=== PATIENT | female | born 1990 | race Hispanic/Latino ===

== ENCOUNTER 2018-01-27 08:08 | Emergency (ER) | payer OTHER ==
[2018-01-27 09:22] LABS: BASO % 0.3 % (0.0-1.0); EOS # 0.1 10^3/uL (0.0-0.50); EOS % 1.1 % (0.0-3.0); HEMATOCRIT 40.9 % (36.0-47.0); HEMOGLOBIN 13.6 g/dl (12.0-15.5); IMMATURE GRANULOCYTE % 0.4 % (0-3.0); LYMPH # 2.4 10^3/uL (1.5-6.5); LYMPH % 33.3 % (24.0-44.0); MEAN CORPUSCULAR HEMOGLOBIN 29.5 pg (27.0-33.0); MEAN CORPUSCULAR HGB CONC 33.3 g/dl (32.0-36.5); MEAN CORPUSCULAR VOLUME 88.7 fl (80.0-96.0); MONO # 0.5 10^3/uL (0.0-0.8); MONO % 6.2 % (0.0-5.0); NEUTROPHILS # 4.2 10^3/uL (1.8-7.7); NEUTROPHILS % 58.7 % (36.0-66.0); PLATELET COUNT, AUTOMATED 196 10^3/uL (150-450); RED BLOOD COUNT 4.61 10^6/uL (4.00-5.40); RED CELL DISTRIBUTION WIDTH 11.9 % (11.5-14.5); WHITE BLOOD COUNT 7.2 10^3/uL (4.0-10.0)
[2018-01-27 09:31] LABS: KETONE, URINE AUTO RFX NEGATIVE (NEGATIVE); LEUKOCYTE ESTERASE UR AUTO RFX NEGATIVE (NEGATIVE); MUCUS, URINE RFX SMALL (NEGATIVE); NITRITE, URINE AUTO RFX NEGATIVE (NEGATIVE); RBC, URINE AUTO RFX 9 /HPF (0-3); SPECIFIC GRAVITY UR AUTO RFX 1.027 (1.002-1.035); SQUAM EPITHELIAL CELL UR AURFX 2 /HPF (0-6); WBC, URINE AUTO RFX 1 /HPF (0-3)
[2018-01-27 09:33] LABS: ALBUMIN 4.1 GM/DL (3.2-5.2); ALBUMIN/GLOBULIN RATIO 1.11 (1.00-1.93); ALKALINE PHOSPHATASE 72 U/L (45-117); ALT/SGPT 19 U/L (12-78); ANION GAP 5 MEQ/L (8-16); AST/SGOT 18 U/L (7-37); BILIRUBIN,DIRECT 0.1 MG/DL (0.0-0.2); BILIRUBIN,TOTAL 0.5 MG/DL (0.2-1.0); BLOOD UREA NITROGEN 14 MG/DL (7-18); CALCIUM LEVEL 8.8 MG/DL (8.5-10.1); CARBON DIOXIDE LEVEL 25 MEQ/L (21-32); CHLORIDE LEVEL 110 MEQ/L (98-107); CREATININE FOR GFR 0.72 MG/DL (0.55-1.30); GLOMERULAR FILTRATION RATE > 60.0 (>60); GLUCOSE, FASTING 81 MG/DL (70-100); SODIUM LEVEL 140 MEQ/L (136-145); TOTAL PROTEIN 7.8 GM/DL (6.4-8.2)
[2018-01-27 09:39] LABS: CONTROL LINE UCG INT CTR LINE PRESENT; URINE PREG TEST NEGATIVE (NEGATIVE)
[2018-01-27] MEDS ORDERED: ISOVUE-370 76% 100ML VIAL (Q9967) As Ordered (12:33)
== END 2018-01-27 13:44 | disposition home or self-care (01) ==
LOC: M ED 08:08
DX: R10.31 Right lower quadrant pain (principal)
CPT/HCPCS: Q9967

== ENCOUNTER → 2019-03-14 | Outpatient (REF) | payer OTHER | LOC: M LAB REF 18:13 | PROVIDERS: ATTEND Internal Medicine Endocrinology, Diabetes & Metabolism | DX: E04.1 Nontoxic single thyroid nodule (principal) ==

== ENCOUNTER → 2019-03-18 | Outpatient (CLI) | payer OTHER ==
--- NOTE | 2019-03-18 11:26 | REP ---
MRI LEFT SHOULDER: TECHNIQUE: Axial T2 fat sat, gradient echo, sagittal oblique T2 fat sat, coronal oblique T1, T2 fat sat. There is mild ill-defined high signal in the supraspinatus tendon on T2-weighted images compatible with mild tendinopathy/tendonitis. There is no evidence of a rotator cuff tendon tear. There are mild hypertrophic degenerative changes of the acromioclavicular joint with mild subchondral marrow edema. Acromion is type II. The biceps tendon is within the bicipital groove with no tenosynovitis. There is no Hill-Sachs deformity. No abnormal signal is seen in the deltoid muscle. Biceps labral complex is intact. I do not see evidence of a SLAP tear. There is no other evidence of a labral tear. No other bone marrow signal abnormality is seen. There is no paralabral cyst. There is mild fluid in the subacromial subdeltoid bursae which may indicate bursitis. IMPRESSION: Mild supraspinatus tendinopathy/tendonitis. No evidence of rotator cuff tear or labral tear. Mild hypertrophic degenerative changes of acromioclavicular joint with a type II acromion. Mild fluid in the subacromial subdeltoid bursae may indicate bursitis. Electronically Signed by Art Green MD 03/22/2019 09:44 A
== END ==
LOC: M RAD 07:39
PROVIDERS: ATTEND Family Medicine
DX: M25.512 Pain in left shoulder (principal)

== ENCOUNTER → 2019-09-19 | Outpatient (REF) | payer OTHER ==
[2019-09-19 12:53] LABS: ESTRADIOL 233.2 PG/ML; PROGESTERONE 0.21 NG/ML
== END ==
LOC: M LABDRAW1 11:29
PROVIDERS: ATTEND Obstetrics & Gynecology Reproductive Endocrinology
DX: E28.9 Ovarian dysfunction, unspecified (principal)

== ENCOUNTER → 2019-09-30 | Outpatient (REF) | payer OTHER ==
[2019-09-30 10:48] LABS: THYROID STIMULATING HORMONE 1.6 uIU/ML (0.358-3.740)
[2019-09-30 10:51] LABS: ESTRADIOL 217.2 PG/ML; PROGESTERONE 45.79 NG/ML
== END ==
LOC: M LABDRAW1 08:32
PROVIDERS: ATTEND Obstetrics & Gynecology Reproductive Endocrinology
DX: E28.9 Ovarian dysfunction, unspecified (principal)

== ENCOUNTER → 2019-10-06 | Outpatient (REF) | payer OTHER ==
[2019-10-06 12:07] LABS: PROGESTERONE 40.29 NG/ML
== END ==
LOC: M LABDRAW1 11:10
PROVIDERS: ATTEND Obstetrics & Gynecology Reproductive Endocrinology
DX: E28.9 Ovarian dysfunction, unspecified (principal)

== ENCOUNTER → 2019-10-10 | Outpatient (REF) | payer OTHER ==
[2019-10-10 11:21] LABS: ESTRADIOL 269.6 PG/ML; PROGESTERONE 42.26 NG/ML; THYROID STIMULATING HORMONE 1.3 uIU/ML (0.358-3.740)
== END ==
LOC: M LABDRAW1 09:49
PROVIDERS: ATTEND Obstetrics & Gynecology Reproductive Endocrinology
DX: Z32.01 Encounter for pregnancy test, result positive (principal)

== ENCOUNTER → 2019-12-23 | Outpatient (REF) | payer OTHER ==
[2019-12-23 13:26] LABS: HEMATOCRIT 41.6 % (36.0-47.0); HEMOGLOBIN 13.4 g/dl (12.0-15.5); MEAN CORPUSCULAR HEMOGLOBIN 29.6 pg (27.0-33.0); MEAN CORPUSCULAR HGB CONC 32.2 g/dl (32.0-36.5); MEAN CORPUSCULAR VOLUME 91.8 fl (80.0-96.0); PLATELET COUNT, AUTOMATED 214 10^3/uL (150-450); RED BLOOD COUNT 4.53 10^6/uL (4.00-5.40); WHITE BLOOD COUNT 11.1 10^3/uL (4.0-10.0)
[2019-12-23 14:12] LABS: HEPATITIS B SURFACE ANTIGEN NEGATIVE (NEGATIVE); HEPATITIS C VIRUS ABY INDEX < 0.0 INDEX (<0.8); HIV 1&2 SCREEN CENTAUR NEGATIVE (NEGATIVE); RUBELLA IgG QUALITATIVE IMMUNE (IMMUNE)
[2019-12-23 15:03] LABS: CHLAMYDIA DNA AMPLIFICATION NEGATIVE (NEGATIVE); GC DNA AMPLIFICATION NEGATIVE (NEGATIVE)
== END ==
LOC: M PLALAB 11:02
PROVIDERS: ATTEND Advanced Practice Midwife
DX: O09.812 Supervision of pregnancy resulting from assisted reproductive technology, second trimester (principal); Z3A.00 Weeks of gestation of pregnancy not specified

== ENCOUNTER → 2020-01-16 | Outpatient (CLI) | payer OTHER ==
--- NOTE | 2020-01-16 17:45 | REP ---
OB ULTRASOUND: Real-time sonographic evaluation of the gravid uterus is performed. There is a single living intrauterine gestation, estimated gestational age 19 weeks 1 day based on today's ultrasound, EDC 06/10/2020. BPD 45 mm = 19 weeks 5 days HC 162 mm = 19 weeks 0 days AC 140 mm = 19 weeks 3 days FL 30 mm = 19 weeks 2 days HC/AC 1.16 within normal range of 1.06 to 1.25. Estimated weight 284 grams, 52nd percentile. Cervix is closed and measures 3.6 cm in length. heart rate 149 beats per minute. SEEN/GROSSLY UNREMARKABLE Lateral ventricles yes Posterior fossa yes Upper lip yes Four-chamber heart yes LVOT yes RVOT yes Stomach yes Cord insertion yes Three vessel cord yes Kidneys yes Bladder yes Spine yes position: Breech Placenta: Posterior and grade 1 with no previa or abruption. Amniotic fluid: Within normal limits.
== END ==
LOC: M WHC 12:56
PROVIDERS: ATTEND Advanced Practice Midwife
DX: O09.812 Supervision of pregnancy resulting from assisted reproductive technology, second trimester (principal); O32.1XX0 Maternal care for breech presentation, not applicable or unspecified; Z3A.19 19 weeks gestation of pregnancy

== ENCOUNTER → 2020-01-18 | Outpatient (CLI) | payer OTHER | LOC: M PLALAB 12:27 | PROVIDERS: ATTEND Advanced Practice Midwife | DX: Z34.82 Encounter for supervision of other normal pregnancy, second trimester (principal); Z3A.00 Weeks of gestation of pregnancy not specified ==

== ENCOUNTER → 2020-03-09 | Outpatient (REF) | payer OTHER ==
[2020-03-09 15:28] LABS: HEMATOCRIT 39.7 % (36.0-47.0); HEMOGLOBIN 13.1 g/dl (12.0-15.5); MEAN CORPUSCULAR VOLUME 91.1 fl (80.0-96.0); PLATELET COUNT, AUTOMATED 233 10^3/uL (150-450); RED BLOOD COUNT 4.36 10^6/uL (4.00-5.40); WHITE BLOOD COUNT 11.5 10^3/uL (4.0-10.0)
== END ==
LOC: M PLALAB 12:44
PROVIDERS: ATTEND Advanced Practice Midwife
DX: O09.812 Supervision of pregnancy resulting from assisted reproductive technology, second trimester (principal)

== ENCOUNTER 2020-04-19 10:15 | Outpatient (CLI) | payer OTHER ==
[~2020-04-19] VITALS: Ht 157.5 cm; Wt 80.2 kg
[2020-04-19 10:32] VITALS: BP 120/77
[2020-04-19] MEDS ORDERED: PRENTAB9 PO (10:38)
[2020-04-19 11:08] LABS: HEMOGLOBIN 12.9 g/dl (12.0-15.5); MEAN CORPUSCULAR HGB CONC 33.9 g/dl (32.0-36.5); MEAN CORPUSCULAR VOLUME 88.4 fl (80.0-96.0); PLATELET COUNT, AUTOMATED 218 10^3/uL (150-450); WHITE BLOOD COUNT 11.3 10^3/uL (4.0-10.0)
[2020-04-19 11:15] LABS: APPEARANCE, URINE HAZY (CLEAR); BACTERIA, URINE AUTO 1+ (NEGATIVE); BILIRUBIN, URINE AUTO NEGATIVE (NEGATIVE); BLOOD, URINE BLOOD 1+ (NEGATIVE); COLOR, URINE YELLOW (YELLOW); GLUCOSE, URINE (UA) AUTO NEGATIVE (NEGATIVE); KETONE, URINE AUTO NEGATIVE (NEGATIVE); LEUKOCYTE ESTERASE, URINE AUTO TRACE (NEGATIVE); MUCUS, URINE SMALL (NEGATIVE); NITRITE, URINE AUTO NEGATIVE (NEGATIVE); PROTEIN, URINE AUTO NEGATIVE (NEGATIVE); RBC, URINE AUTO 2 /HPF (0-3); SPECIFIC GRAVITY URINE AUTO 1.012 (1.002-1.035); SQUAMOUS EPITHELIAL CELL UR AU 0 /HPF (0-6); UROBILINOGEN, URINE AUTO 0.2 mg/dL (0.0-2.0); WBC, URINE AUTO 2 /HPF (0-3)
[2020-04-19 11:28] LABS: ALBUMIN 2.9 GM/DL (3.2-5.2); ALT/SGPT 26 U/L (12-78); BILIRUBIN,TOTAL 0.3 MG/DL (0.2-1.0); BLOOD UREA NITROGEN 9 MG/DL (7-18); CALCIUM LEVEL 9.4 MG/DL (8.5-10.1); CARBON DIOXIDE LEVEL 21 MEQ/L (21-32); CHLORIDE LEVEL 109 MEQ/L (98-107); CREATININE FOR GFR 0.54 MG/DL (0.55-1.30); GLOMERULAR FILTRATION RATE > 60.0 (>60); GLUCOSE, FASTING 72 MG/DL (70-100); SODIUM LEVEL 139 MEQ/L (136-145); TOTAL PROTEIN 6.3 GM/DL (6.4-8.2)
[2020-04-19 11:41] VITALS: BP 121/80
[2020-04-19 12:36] VITALS: BP 127/68
--- NOTE | 2020-04-19 14:48 | REP ---
RIGHT UPPER QUADRANT ULTRASOUND: Real-time sonographic evaluation of the right upper quadrant performed. Gallbladder demonstrates no evidence of intraluminal sludge or calculi, wall thickening or pericholecystic fluid. There is no intrahepatic or extrahepatic biliary dilatation, common bile duct measuring 3 mm. The liver demonstrates no gross mass. Pancreas is grossly unremarkable, tail is not well seen due to overlying bowel gas. Right kidney demonstrates mild to moderate hydronephrosis, length is 11.3 cm. Resistive index is 0.59 with duplex Doppler evaluation. Ureteral jets could not be visualized in the urinary bladder, which is suboptimally distended. Live intrauterine demonstrates a heart rate of 171 beats per minute. IMPRESSION: No biliary abnormality is seen. Mild to moderate right hydronephrosis. Electronically Signed by Art Green MD 04/22/2020 10:22 P
--- NOTE | 2020-04-20 07:54 | IPN ---
DATE OF EVALUATION: 04/19/2020 She is a 29-year-old, (G) 1, para (P) 0 female at 32 and 1/7 weeks gestation and expected date of confinement (EDC) of 06/13/2020 who presents with one day of upper abdominal discomfort in the midline which was severe and intermittent. There is no vomiting. There is good movement. OBJECTIVE: Blood pressure 120/77. Pulse 77. Respiratory rate 18. Temperature 97.2. She is in no apparent distress. Head and Neck Exam: Normal. Lungs: Clear. Heart: Regular. Abdomen: Gravid. Mild tenderness in the epigastrium to light palpation. Extremities: Nontender. Contractions irregular. Cervix long, closed, posterior. ASSESSMENT: 29-year-old, G1, P0, at 32 and 1/7 weeks gestation with probable musculoskeletal pain. PLAN: Recommend rest, Tylenol for inflammation and followup in the office as scheduled. Return for worsening pain.
== END 2020-04-19 14:00 | disposition home or self-care (01) ==
LOC: M LDO 10:15
PROVIDERS: ATTEND Specialist
DX: O26.893 Other specified pregnancy related conditions, third trimester (principal); R10.10 Upper abdominal pain, unspecified; Z3A.32 32 weeks gestation of pregnancy
CPT/HCPCS: 36415; 59025; 76705; 80053; 81001; 85027; G0378; G0463

== ENCOUNTER → 2020-05-15 | Outpatient (REF) | payer OTHER ==
[~2020-05-15] MED LIST: IBUP80TA PO; PRENTAB9 PO
== END ==
LOC: M SFHCWAGY 07:15
PROVIDERS: ATTEND Obstetrics & Gynecology
DX: Z34.03 Encounter for supervision of normal first pregnancy, third trimester (principal)

== ENCOUNTER 2020-06-10 08:57 | Inpatient (IN) | payer OTHER ==
[~2020-06-10] VITALS: Ht 157.5 cm; Wt 85.4 kg
[2020-06-10] VITALS (29 sets, daily range): BP systolic 96–138; BP diastolic 51–105
[~2020-06-10 08:57] MED LIST changes: -IBUP80TA PO
[2020-06-10] MEDS ORDERED: LACTATED RINGER'S 1000 ML IV STA (09:29)
[2020-06-10 10:20] LABS: HEMATOCRIT 38.9 % (36.0-47.0); HEMOGLOBIN 13.2 g/dl (12.0-15.5); MEAN CORPUSCULAR HEMOGLOBIN 30.3 pg (27.0-33.0); MEAN CORPUSCULAR HGB CONC 33.9 g/dl (32.0-36.5); MEAN CORPUSCULAR VOLUME 89.4 fl (80.0-96.0); PLATELET COUNT, AUTOMATED 205 10^3/uL (150-450); RED BLOOD COUNT 4.35 10^6/uL (4.00-5.40); WHITE BLOOD COUNT 15.4 10^3/uL (4.0-10.0)
[2020-06-10] MEDS: LR 1,000 ML IV SCH ×3 (13:30→17:36)
[2020-06-10] MEDS ORDERED: FENTANYL 2MCG/ML ROPIVACAINE 0.2% IN 0.9% NACL 100ML IVBAG As Ordered ONE (13:38)
[2020-06-10] MEDS ORDERED: diphenhydrAMINE 50MG/ML VIAL (J1200) IV PRN ×2 (14:30→20:45)
[2020-06-10] MEDS ORDERED: EPIDURAL/PCA KEYS XX PRN (14:30)
[2020-06-10] MEDS ORDERED: EPIDURAL COMMENT XX SCH (14:30)
[2020-06-10] MEDS ORDERED: NALOXONE INJ 0.4MG/1ML VIAL (J2310 PER 1MG) IV PRN ×3 (14:30→20:45)
[2020-06-10] MEDS ORDERED: ONDANSETRON 4MG/2ML VIAL IV PRN ×4 (14:30→22:00)
[2020-06-10] MEDS ORDERED: LACTATED RINGER'S 1000 ML IV PRN (14:30)
[2020-06-10] MEDS ORDERED: REFRIGERATOR IV KEYS XX PRN (14:30)
[2020-06-10] MEDS ORDERED: FENTANYL/ROPIVACAINE/NACL BAG 100 ML EPIDURAL SCH (14:30)
[2020-06-10] MEDS: ePHEDrine SULFATE 25 MG/5 ML(5MG/ML) SYRINGE IV PRN ×2 (15:06→15:47)
[2020-06-10] MEDS ORDERED: OXYTOCIN 30 UNITS IN 0.9% NaCl 500ML IV BAG (J2590) As Ordered ONE (17:51)
[2020-06-10] MEDS ORDERED: ceFAZolin 2 GM/D5W 50 ML IV BAG (J0690 PER 500MG) As Ordered ONE (19:52)
[2020-06-10] MEDS ORDERED: BICITRA 30ML SOLN UDC As Ordered ONE (19:53)
[2020-06-10] MEDS ORDERED: AZITHROMYCIN INJ 500MG VIAL (J0456 PER 500MG) As Ordered ONE (19:53)
[2020-06-10] MEDS ORDERED: ceFAZolin SOD 2 GM in IV 1 EA IV ONE (20:00)
[2020-06-10] MEDS ORDERED: BICITRA 30ML SOLN UDC PO ONE (20:00)
[2020-06-10] MEDS ORDERED: KETOROLAC 30 MG/ML 1ML VIAL IV SCH (20:00)
[2020-06-10] MEDS ORDERED: dexameTHASONE 4 MG/ML 1ML VIAL (J1100 PER 1MG) As Ordered ONE (20:32)
[2020-06-10] MEDS ORDERED: MORPHINE PRES-FREE INJ 10 MG/10 ML VIAL (J2274) As Ordered ONE (20:32)
[2020-06-10] MEDS ORDERED: METOCLOPRAMIDE INJ 10MG/2ML VIAL (J2765 PER 1) As Ordered ONE (20:32)
[2020-06-10] MEDS ORDERED: OXYTOCIN INJ 10 UNITS/ML VIAL (J2590) As Ordered ONE (20:32)
[2020-06-10] MEDS ORDERED: LIDOCAINE 2% W/EPINEPHRINE 20ML VIAL **PRES FREE As Ordered ONE (20:32)
[2020-06-10] MEDS ORDERED: ONDANSETRON 4MG/2ML VIAL As Ordered ONE (20:32)
[2020-06-10] MEDS ORDERED: PHENYLephrine HCL 500 MCG/5 ML (100MCG/ML) SYRINGE (J2370) As Ordered ONE (20:37)
[2020-06-10] MEDS ORDERED: METOCLOPRAMIDE INJ 10MG/2ML VIAL (J2765 PER 1) IV PRN (20:45)
[2020-06-10] MEDS ORDERED: OXYTOCIN DRIP 30 UNITS in IV 1 EA IV SCH (21:02)
[2020-06-10] MEDS ORDERED: LR 1,000 ML IV SCH ×2 (21:02→22:00)
[2020-06-10] MEDS ORDERED: RHOGAM 300 MCG (1500 IU) INJ (J2790) IM SCH (21:15)
[2020-06-10] MEDS ORDERED: PERCOCET 5MG/325MG TAB PO PRN (21:15)
[2020-06-10] MEDS ORDERED: DOCUSATE SODIUM 100 MG CAP PO PRN (21:15)
[2020-06-10] MEDS ORDERED: ONDANSETRON 4 MG TAB PO PRN (21:15)
[2020-06-10] MEDS ORDERED: MEASLES,MUMPS,RUBELLA VACCINE INJ (MMR-II) (90707) SC SCH (21:15)
[2020-06-10] MEDS ORDERED: fentaNYL 100 MCG/2 ML INJECTION (J3010) As Ordered ONE (21:39)
[2020-06-10] MEDS ORDERED: MEPERIDINE INJ 25 MG/ML VIAL (J2175) IV PRN (22:00)
[2020-06-10] MEDS ORDERED: fentaNYL 100 MCG/2 ML INJECTION (J3010) IV PRN (22:00)
[2020-06-10] MEDS ORDERED: oxyCODONE 5MG TAB PO PRN (22:00)
[2020-06-10] MEDS ORDERED: KETOROLAC 30 MG/ML 1ML VIAL As Ordered ONE (22:09)
[2020-06-11] VITALS (7 sets, daily range): BP systolic 106–138; BP diastolic 58–81
[2020-06-11] MEDS: PERCOCET 5MG/325MG TAB PO PRN ×4 (02:00→23:47)
[2020-06-11] MEDS: KETOROLAC 30 MG/ML 1ML VIAL IV SCH ×3 (04:15→15:51)
[2020-06-11 06:59] LABS: HEMATOCRIT 32.3 % (36.0-47.0); MEAN CORPUSCULAR HEMOGLOBIN 30.7 pg (27.0-33.0); MEAN CORPUSCULAR HGB CONC 33.7 g/dl (32.0-36.5); PLATELET COUNT, AUTOMATED 160 10^3/uL (150-450); RED BLOOD COUNT 3.55 10^6/uL (4.00-5.40); WHITE BLOOD COUNT 17.7 10^3/uL (4.0-10.0)
[2020-06-11 07:04] LABS: HEMOGLOBIN 10.9 g/dl (12.0-15.5)
[2020-06-11] MEDS ORDERED: PRENATAL VITAMINS CHEWABLE TABLET PO SCH (09:00)
[2020-06-11] MEDS ORDERED: IBUP80TA PO (23:28)
--- NOTE | 2020-06-11 23:49 | DS.PDOC ---
Discharge Summary General Date of Admission Jun 10, 2020 at 09:23 Date of Discharge 06/11/20 Attending Physician: DEWAYNE GALLO MD Discharge Summary PROCEDURES PERFORMED DURING STAY: Primary section. ADMITTING DIAGNOSES: 1. IUP at 39+ weeks gestation. 2. as a result of IVF DISCHARGE DIAGNOSES: 1. Primary section-24 hours postoperative. COMPLICATIONS/CHIEF COMPLAINT: LABOR. HISTORY OF PRESENT ILLNESS: Patient is a 30-year-old female who presented to L&D in active labor. She progressed to fully dilated and found to have meconium. She pushed for 2 hours with no success and the decision was made with the patient to progress to a section. The surgery was without complication. The baby did have resuscitation measures due to what was diagnosed as meconium aspiration where the baby was transferred to [facility]. The patient stayed for 24 hours before asking to be discharged as she received news from the NICU at [facility] that her was not doing great and they recommended that she come to [facility] if she could. DISCHARGE MEDICATIONS: Please see below. ALLERGIES: Please see below. PHYSICAL EXAMINATION ON DISCHARGE: VITAL SIGNS: Please see below. GENERAL: Patient does not appear to be in any physical distress but is very tea ry eyed. CARDIOVASCULAR EXAMINATION: Appropriate profusion. RESPIRATORY EXAMINATION: Regular rate with no use of accessory muscles. CTA bilaterally. ABDOMINAL EXAMINATION: fundus is firm and EXTREMITIES: Generalized edema to 1+ pitting edema. SKIN: warm, dry, intact with no unusual rashes or lesions. NEUROLOGICAL EXAMINATION: A+Ox3 LABORATORY DATA: Please see below. ACTIVITY: As tolerated. No heavy lifting. DIET: regular DISCHARGE INSTRUCTIONS: 1. Patient being discharged early due to changes in status of their that was sent to [facility] for meconium aspiration. 2. COVID test of mom and dad are both negative and test results faxed to [facility]. 3. Discharged with a script written by Dr. Gallo for Percocet. 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 4. Patient to follow-up in the office in 1 to 2 weeks. 5. Reviewed signs of infection, cleaning incision, pain management, blood clots, pulmonary embolism, signs of depression, signs of mastitis, and pelvic rest. DISCHARGE CONDITION: Stable. Vital Signs/I&Os Vital Signs Date Time Temp Pulse Resp B/P (MAP) Pulse Ox O2 Delivery O2 Flow Rate FiO2 06/11/20 23:47 18 06/11/20 21:46 97.4 94 129/71 (90) 06/11/20 18:00 99 I&O- Last 24 Hours up to 6 AM 06/11/20 06:00 Intake Total 4305 ml Output Total 2300 ml Balance 2005 ml Laboratory Data Labs 24H Laboratory Tests 2 06/11/20 06:40: Nucleated Red Blood Cells % (auto) 0.0 CBC/BMP Laboratory Tests 06/11/20 06:40 Discharge Medications Scheduled Ibuprofen (Ibuprofen) 800 Mg Tablet, 800 MG PO Q8H No.137/Iron/Folic Acd ( Vitamin Tablet) 1 Each Tablet, 1 TAB PO DAILY, (Reported) Allergies Coded Allergies: No Known Allergies (Unverified , 01/27/18) FLOR RAMIREZ CNM Jun 11, 2020 23:49
[2020-06-12] VITALS: BP 129/99
[2020-06-12] MEDS ORDERED: IBUPROFEN 800 MG TAB PO SCH
--- NOTE | 2020-07-05 08:55 | RO ---
DATE OF OPERATION: 06/10/2020 PREOPERATIVE DIAGNOSIS: 39 weeks gestation in labor, arrest of descent. POSTOPERATIVE DIAGNOSIS: 39 weeks gestation in labor, arrest of descent. PROCEDURE: Primary low-transverse section. SURGEON: Malik oMore MD HEARING AID MECHANIC: Abhijit Funk DO ANESTHESIA: Epidural. ESTIMATED BLOOD LOSS: 600 ml URINE OUTPUT: 50 ml. FINDINGS: 6 pound, 7 ounce male infant, 2912 gm, occiput posterior position, thick meconium present. Normal uterus, fallopian tubes and ovaries. OPERATIVE SUMMARY: The patient was taken to the operating room where epidural anesthesia was adequate. She was prepped and draped in the sterile fashion in the supine position. The Vuong catheter was already in place. A Pfannenstiel skin incision made with the scalpel, carried through to the fascia, the fascia nicked and extended. The fascia resected off the rectus muscle. Peritoneal cavity was entered. Mobius retractor was placed. A bladder flap was created. Curvilinear incision was made in the lower uterine segment until meconium stained fluid is noted. This was extended manually. The was delivered from the vertex position without difficulty. The cord was doubly clamped and cut. The infant was handed off to the waiting human resources manager manufacturing. The placenta was expressed. The uterus was cleared of clots and debris. The uterine incision was closed with 0-Vicryl in running locked fashion. A second imbricating layer of 0-Vicryl was placed. The peritoneum was closed with 0-Vicryl in running fashion. The fascia was closed 0-Vicryl. The deep layer was closed with 2-0 chromic. The skin was closed with 40 Monocryl subcuticular sutures. Sponge, instrument and needle counts correct. MTDD
== END 2020-06-12 00:07 | disposition home or self-care (01) | DRG 773 ==
LOC: M LDO 08:57 → M LDI 09:23 → M OBS 06-11 00:01
PROVIDERS: ADMIT Specialist; ATTEND Specialist
PROC: 10D00Z1 Extraction of Products of Conception, Low, Open Approach (ICD-10-PCS; principal; 2020-06-10 13:58)
DX: O32.4XX0 Maternal care for high head at term, not applicable or unspecified (principal); Z37.0 Single live birth; Z3A.39 39 weeks gestation of pregnancy

== ENCOUNTER → 2020-10-23 | Outpatient (REF) | payer OTHER ==
[~2020-10-23] MED LIST changes: +IBUP80TA PO
== END ==
LOC: M LAB REF 17:11
PROVIDERS: ATTEND Internal Medicine Endocrinology, Diabetes & Metabolism
DX: E04.1 Nontoxic single thyroid nodule (principal)